=== PATIENT | female | born 1995 | race Caucasian/White ===

== ENCOUNTER 2017-01-04 04:48 | Emergency (ER) | payer OTHER ==
[~2017-01-04] VITALS: Ht 167.6 cm; Wt 70.5 kg
[2017-01-04 04:55] VITALS: BP 114/72; PULSE 73; RESP 24; O2SAT 99
--- NOTE | 2017-01-04 05:58 | ED.REPORT ---
HPI-General Illness Date of Service Jan 04, 2017 ED Provider: Lewis Walsh MD A 21 year old female with a history of back pain and anxiety presents to the ED complaining of back pain. The pt experienced similar pain two years ago, which resolved within days of having an "injection in her spine" (maybe epidural steroid injection). The pain began again last week, though the pt denies trauma or other factors to cause the symptoms to return. The pt was seen by her PCP three days ago for this and diagnosed with a back sprain. She was prescribed ibuprofen, which she has been taking inconsistently for two days with no relief. She worked a longer shift than usual last night and felt shooting pains with brief tingling, numbness and weakness in her legs when she sat down in her car. This prompted her to seek medical care. The pt denies bowel or bladder incontinence, persistent numbness, fever, nausea, vomiting, or abdominal pain. She also denies family history of back pain or any history of back injury. Nursing Notes Stated Complaint: BACK, LEG NUMBNESS, BLURRED VISION Chief Complaint: Back Pain or Injury Nursing Notes Reviewed: Yes Allergies: Coded Allergies: No Known Allergies (Unverified , 01/04/17) General Time Seen by MD: 05:57 Chief Complaint Back pain Hx Obtained From: Patient Arrived By: Walk-in Sudden in Onset?: No Onset Occurred: 4 days ago Symptom Duration: Since onset Recent Healthcare: No recent hospitalization, Recent doctor visit Similar Sx Previous: Yes Past Medical History Past Medical History back pain anxiety Past Surgical History none reported Smoking History Never Smoker Social History Drug Use: Denies drug use Other Social History: Good social support Ambulatory Status Independent Review of Systems leg tingling denies bowel or bladder incontinence denies persistent numbness Full Review of Systems Constitutional: Denies: Fever Cardiovascular: Denies: Chest pain GI: Denies: Abdominal pain, Diarrhea, Nausea, Vomiting Musculoskeletal: Reports: Back pain, Denies: Neck pain Neurologic: Reports: Numbness (brief), Weakness Complete sys rev & neg: except as marked. Physical Exam Vital Signs Vital Signs Date Time Temp Pulse Resp B/P Pulse Ox O2 Delivery O2 Flow Rate FiO2 01/04/17 04:55 36.4 73 24 114/72 99 Room Air Initial VS: Reviewed General/Constitutional: Awake, Alert Head / Eyes: Atraumatic, Normocephalic, PERRL, EOMI ENT: Atraumatic, Airway patent, Mucous membranes moist Neck: Atraumatic, Supple, Full range of motion Respiratory / Chest: Atraumatic, Breath sounds NL, Breath sounds = bilat, No respiratory distress Cardiovascular: Heart rate NL, Regular rhythm, Heart sounds NL Abdomen: Atraumatic, Soft, Non-tender Back: Atraumatic, Full range of motion Upper Extremities Upper Extremity / MS: Atraumatic, Full range of motion Lower Extremity / Pelvis / MS: Atraumatic, Full range of motion modified straight leg test positive bilaterally at 70 degrees Skin: Atraumatic, Color NL, No rash, Warm, Dry Neurologic: Oriented X3, Speech NL, No motor deficits, No sensory deficits Psychiatric: Affect NL, Mood NL Re-Eval/Medical Decision Counseled Regarding: Diagnosis, Need for follow-up, When/why to return to ED Discharge & Departure Primary Impression: Lumbosacral strain Encounter type: initial encounter Qualified Code: S39.012A - Strain of muscle, fascia and tendon of lower back, initial encounter Disposition: Home Discharge Condition All VS Reviewed: Yes Condition: Stable Patient Instructions: Acute Low Back Pain (ED) Additional Instructions: Take Naproxen twice daily for one to two weeks, or you can take two extra strength Tylenol (acetaminophen) four times daily (maximum 4000mg every 24 hours ). Use cyclobenzaprine 3-4 times daily as needed for severe pain. This medication causes sedation and you should not drive or work or use alcohol while taking it. Call today to make a follow up appointment next or Friday for further evaluation. Return to the emergency department if you develop new or worsening symptoms such as bowel or bladder incontinence, saddle numbness, or leg weakness. Referrals: OTHER,PHYSICIAN (PCP) Scribe Attestation Portions of this note were transcribed by Vamsi Brunner. I, Dr. Walsh personally performed the history, physical exam and medical decision-making; I reviewed and confirmed the accuracy of the information in the transcribed note. Signed by: Julia Buchanan, 01/04/17 and 0616. Lewis Walsh MD Jan 04, 2017 05:58 VAMSI BRUNNER Jan 04, 2017 06:07
[2017-01-04] MEDS ORDERED: CYCL10TA9 PO (06:39)
== END 2017-01-04 06:55 | disposition home or self-care (01) ==
LOC: SED 04:48
DX: S39.012A Strain of muscle, fascia and tendon of lower back, initial encounter (principal); X50.1XXA Overexertion from prolonged static or awkward postures, initial encounter; Y93.89 Activity, other specified; Y92.89 Other specified places as the place of occurrence of the external cause; Y99.8 Other external cause status
CPT/HCPCS: 96372; 99283; J1885